=== PATIENT | female | born 1990 | race Caucasian/White ===

== ENCOUNTER → 2017-08-22 | Outpatient (CLI) | payer SELFPAY ==
--- NOTE | 2017-08-22 16:23 | RADIOLOGY REPORT (SQ) ---
EXAM DESCRIPTION: U/S [id number] TRNABD 1GES W/ODOP COMPLETED DATE/TIME: 08/22/2017 3:49 pm REASON FOR STUDY: ENCOUNTER FOR SUPERVISIONOF OTHER NORMAL Z34.82 ENCOUNTER FOR SUPRVSN O F NORMAL , SECOND TRI COMPARISON: No previous this TECHNIQUE: Transabdominal static and realtime grayscale images acquired of the pelvis. Additional se lected spectral and color Doppler images recorded. All images stored on PACs. bHCG: None available LIMITATIONS: None. FINDINGS: An intrauterine gestational sac is present, containing an embryo, by crown-rump length est imated age is 9 weeks 0 days. No cardiac activity is seen at real-time scanning, color, or M-mode Do ppler. This report was called to Jenifer at the [facility] Department, 1530 hours 08/22/2017. Embryo demise wa s also discussed with the patient and her by me, immediately after the exam. No subchorionic hemorrhage. Cervix closed. UTERUS: No masses. No anomalies. Uterus is 9 x 8 x 7 cm in size CERVICAL LENGTH: 2 cm Closed. RIGHT ADNEXA: Normal ovary with normal vascular flow. Right ovary is 3.3 x 2.2 x 2.1 cm in size. No adnexal free fluid. No adnexal masses. LEFT ADNEXA: Normal ovary with normal vascular flow. Left ovary is 2.9 x 2.3 x 2 cm in size No adnexal free fluid. No adnexal masses. FREE FLUID: None. OTHER: No other significant finding. IMPRESSION: Embryo demise, no cardiac activity. Estimated age by crown-rump length 9 weeks 0 days. Trimester of : First - 0 to 13 weeks. COMMENT: Pertinent findings on the imaging study reported as a CRITICAL RESULT to Jenifer at the [facility] Department [id number] hours on 08/22/2017. Category of Critical Result: Embryo demise TECHNICAL DOCUMENTATION: JOB ID: [id number] [employer]- All Rights Reserved
== END ==
LOC: RAD 14:42
PROVIDERS: ATTEND Nurse Practitioner Women's Health
DX: Z34.82 Encounter for supervision of other normal pregnancy, second trimester (principal)
CPT/HCPCS: 76801

== ENCOUNTER 2017-09-06 21:19 | Emergency (ER) | payer MEDICAID ==
[2017-09-06] MEDS ORDERED: DOXYCYCLINE HYCLATE INJ 100 MG VIAL IV ONE (21:43)
[2017-09-06] MEDS ORDERED: ONDANSETRON HCL INJ/PF 4 MG/2 ML SDV IV ONE (21:48)
[2017-09-06] MEDS ORDERED: KETOROLAC TROMETHAMINE INJ/PF 30 MG/1 ML SDV IV ONE (21:48)
[2017-09-06] MEDS ORDERED: OXYCODONE-ACETAMINOPHEN 5-325 MG TABLET PO ONE (21:48)
--- NOTE | 2017-09-06 21:50 | ER Document Report ---
ED GI/ - General Chief Complaint: Abdominal Pain Stated Complaint: ABDOMINAL PAIN Time Seen by Provider: 09/06/17 21:30 Mode of Arrival: Ambulatory Information source: Patient Notes: Patient states that she was recently treated for demise with Cytotec on and then had a second dose yesterday. Patient states that she was measuring about 9 weeks gestation based on her ultrasound. Patient states that after the initial dose of Cytotec she only bled for 3 hours and then the bleeding stopped. Patient states she has not had any vaginal bleeding or discharge after the second dose. Patient does report a fever of 100.9 yesterday but has not measured temperature today. Patient does complain of some nausea but denies any vomiting or diarrhea. Patient has a follow-up appointment in 5 days. TRAVEL OUTSIDE OF THE [place] IN LAST 30 DAYS: No - HPI Patient complains to provider of: Pelvic pain, - demise. No: Flank pain, Vomiting Onset: Last week Timing/Duration: Worse Quality of pain: Cramping Pain Level: 4 Location: Pelvis Vaginal bleeding (Compared to normal period): None Associated symptoms: Fever - Yesterday, none since, Nausea. denies: Diarrhea, Dysuria, Urinary hesitancy, Urinary frequency, Urinary retention, Urinary urgency, Vaginal discharge, Vomiting Exacerbated by: Denies Relieved by: Denies Similar symptoms previously: No Recently seen / treated by doctor: Yes - Related Data Allergies/Adverse Reactions: Penicillins Allergy (Verified 09/06/17 21:20) Sulfa (Sulfonamide Antibiotics) Allergy (Verified 09/06/17 21:20) Home Medications: Current Home Medications Bupropion HCl [Wellbutrin Xl 150 mg 24hr Tablet] 1 tab PO DAILY 09/06/17 [ History] Misoprostol [Cytotec 0.2 mg Tablet] 1 dose ASDIR PRN 09/06/17 [History] Past Medical History - General Information source: Patient Last Menstrual Period: with demise - Social History Smoking Status: Never Smoker Frequency of alcohol use: None Drug Abuse: None 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 Denies: Hx Peritoneal Dialysis Psychiatric Medical History: Reports: Hx Depression Traumatic Medical History: Reports: Hx Fractures Surgical Hx: Negative - Immunizations Immunizations up to date: Yes Hx Diphtheria, Pertussis, Tetanus Vaccination: Yes - 2010 Review of Systems - Review of Systems Constitutional: Fever - Yesterday EENT: No symptoms reported Cardiovascular: No symptoms reported. denies: Chest pain, Dizziness, Lightheaded Respiratory: No symptoms reported. denies: Cough, Hurts to breathe, Short of breath Gastrointestinal: Abdominal pain, Nausea. denies: Vomiting Genitourinary: No symptoms reported. denies: Dysuria, Flank pain Female Genitourinary: . denies: Vaginal discharge, Vaginal bleeding Musculoskeletal: No symptoms reported. denies: Back pain Skin: No symptoms reported Hematologic/Lymphatic: No symptoms reported Neurological/Psychological: No symptoms reported Physical Exam - Vital signs Vitals: Temp Pulse BP Pulse Ox 98.1 F 90 130/82 H 97 09/06/17 21:23 09/06/17 21:23 09/06/17 21:23 09/06/17 21:23 - General General appearance: Appears well, Alert In distress: None - HEENT Head: Normocephalic, Atraumatic Eyes: Normal Nasal: Normal Mouth/Lips: Normal Mucous membranes: Normal Neck: Normal, Supple. No: Lymphadenopathy - Respiratory Respiratory status: No respiratory distress Chest status: Nontender Breath sounds: Normal. No: Rales, Rhonchi, Stridor, Wheezing Chest palpation: Normal - Cardiovascular Rhythm: Regular Heart sounds: S1 appreciated, S2 appreciated Murmur: No - Abdominal Inspection: Normal Distension: No distension Bowel sounds: Normal Tenderness: Tender - Left lower pelvic tenderness. No: McBurney's point, Guarding, Rebound Organomegaly: No organomegaly - Back Back: Normal, Nontender. No: CVA tenderness - Extremities General upper extremity: Normal inspection, Normal ROM General lower extremity: Normal inspection, Normal ROM - Neurological Neuro grossly intact: Yes Cognition: Normal Wilman Coma Scale Eye Opening: Spontaneous Wilman Coma Scale Verbal: Oriented Wimlan Coma Scale Motor: Obeys Commands Wilman Coma Scale Total: 15 - Psychological Associated symptoms: Normal affect, Normal mood - Skin Skin Temperature: Warm Skin Moisture: Dry Skin Color: Normal Course - Re-evaluation Re-evalutation: 09/06/17 21:[address] Barbour who recommends consultation with [facility]. Consulted with Dr. Rodriguez who recommends giving patient dose of IV doxycycline and having her follow-up in the office tomorrow morning for further examination. Recommends giving her prescription pain medication to go home with. Suspects that patient's fever yesterday was related to increased dose of Cytotec as patient is currently afebrile. 09/06/17 22:39 Patient states that pain is improved after pain medication. Discussed plan of care with patient, patient verbalized understanding and is agreeable with plan. Patient nontoxic in appearance. - Vital Signs Vital signs: Temp Pulse Resp BP Pulse Ox 98.1 F 78 18 121/75 98 09/06/17 21:23 09/06/17 22:52 09/06/17 22:52 09/06/17 22:52 09/06/17 22:52 - Laboratory Result Diagrams: 09/06/17 21:55 09/06/17 21:55 Laboratory results interpreted by me: 09/06/17 21:55 WBC 12.5 H Absolute Neutrophils 8.4 H Labs- Entire Visit 09/06/17 09/06/17 21:55 21:55 WBC 12.5 H RBC 4.00 Hgb 12.7 Hct 36.1 MCV 90 MCH 31.7 MCHC 35.1 RDW 12.7 Plt Count 325 Seg Neutrophils % 66.8 Lymphocytes % 25.8 Monocytes % 5.4 Eosinophils % 1.4 Basophils % 0.6 Absolute Neutrophils 8.4 H Absolute Lymphocytes 3.2 Absolute Monocytes 0.7 Absolute Eosinophils 0.2 Absolute Basophils 0.1 Sodium 142.0 Potassium 4.1 Chloride 105 Carbon Dioxide 26 Anion Gap 11 BUN 7 Creatinine 0.72 Est GFR ( Amer) > 60 Est GFR (Non-Af Amer) > 60 Glucose 95 Calcium 9.9 Total Bilirubin 0.4 Direct Bilirubin 0.4 Neonat Total Bilirubin Not Reportable Neonat Direct Bilirubin Not Reportable Neonat Indirect Bili Not Reportable AST 16 ALT 25 Alkaline Phosphatase 63 Total Protein 6.9 Albumin 4.1 09/06/17 22:39 Labs- Entire Visit 09/06/17 09/06/17 21:55 21:55 WBC 12.5 H RBC 4.00 Hgb 12.7 Hct 36.1 MCV 90 MCH 31.7 MCHC 35.1 RDW 12.7 Plt Count 325 Seg Neutrophils % 66.8 Lymphocytes % 25.8 Monocytes % 5.4 Eosinophils % 1.4 Basophils % 0.6 Absolute Neutrophils 8.4 H Absolute Lymphocytes 3.2 Absolute Monocytes 0.7 Absolute Eosinophils 0.2 Absolute Basophils 0.1 Sodium 142.0 Potassium 4.1 Chloride 105 Carbon Dioxide 26 Anion Gap 11 BUN 7 Creatinine 0.72 Est GFR ( Amer) > 60 Est GFR (Non-Af Amer) > 60 Glucose 95 Calcium 9.9 Total Bilirubin 0.4 Direct Bilirubin 0.4 Neonat Total Bilirubin Not Reportable Neonat Direct Bilirubin Not Reportable Neonat Indirect Bili Not Reportable AST 16 ALT 25 Alkaline Phosphatase 63 Total Protein 6.9 Albumin 4.1 - Diagnostic Test Radiology reviewed: Reports reviewed - Reviewed patient's outpatient ultrasound Discharge - Discharge Clinical Impression: demise, Pelvic pain, impending a Condition: Stable Disposition: HOME, SELF-CARE Instructions: IV Antibiotics ([facility]), Miscarriage Impending ([facility]), Oral Narcotic Medication ([facility]) Additional Instructions: Return immediately for any new or worsening symptoms Followup with your [facility] provider tomorrow in the office. Let the office staff know that we spoke with Dr. Jennifer mohr and she advised that you be seen tomorrow morning for a recheck. Referrals: AB MCNALLY MD [Primary Care Provider] - Follow up as needed [facility] [Provider Group] - Follow up tomorrow
[2017-09-06 22:06] LABS: ABSOLUTE BASOPHILS # (AUTO) 0.1 10^3/uL (0.0-0.2); ABSOLUTE EOSINOPHILS # (AUTO) 0.2 10^3/uL (0.0-0.6); ABSOLUTE LYMPHOCYTES (AUTO) 3.2 10^3/uL (0.5-4.7); ABSOLUTE MONOCYTES (AUTO) 0.7 10^3/uL (0.1-1.4); ABSOLUTE NEUT (AUTO) 8.4 10^3/uL (1.7-8.2); BASOPHILS % (AUTO) 0.6 % (0-2); EOSINOPHILS % (AUTO) 1.4 % (0-6); HEMATOCRIT 36.1 % (36.0-47.0); HEMOGLOBIN 12.7 g/dL (12.0-15.5); LYMPHOCYTES % (AUTO) 25.8 % (13-45); MEAN CORPUSCULAR HEMOGLOBIN 31.7 pg (27.0-33.4); MEAN CORPUSCULAR HGB CONC 35.1 g/dL (32.0-36.0); MEAN CORPUSCULAR VOLUME 90 fl (80-97); MONOCYTES % (AUTO) 5.4 % (3-13); RED CELL DISTRIBUTION WIDTH 12.7 % (11.5-14.0); SEGMENTED NEUTROPHILS % (AUTO) 66.8 % (42-78); WHITE BLOOD COUNT 12.5 10^3/uL (4.0-10.5)
[2017-09-06 22:27] LABS: ALANINE AMINOTRANSFERASE 25 U/L (9-52); ALBUMIN 4.1 g/dL (3.5-5.0); ALKALINE PHOSPHATASE 63 U/L (38-126); ANION GAP 11 (5-19); ASPARTATE AMINO TRANSFERASE 16 U/L (14-36); BILIRUBIN,DIRECT 0.4 mg/dL (0.0-0.4); BILIRUBIN,TOTAL 0.4 mg/dL (0.2-1.3); BLOOD UREA NITROGEN 7 mg/dL (7-20); CALCIUM 9.9 mg/dL (8.4-10.2); CARBON DIOXIDE 26 mmol/L (22-30); CHLORIDE 105 mmol/L (98-107); CREATININE RESULT 0.72 mg/dL (0.52-1.25); GLUCOSE 95 mg/dL (75-110); POTASSIUM 4.1 mmol/L (3.6-5.0); TOTAL PROTEIN 6.9 g/dL (6.3-8.2)
[2017-09-06] MEDS ORDERED: HYDROCODONE/ACETAMINOPHEN 5-325 MG 6 TAB/DSPK PO PRN (22:40)
[2017-09-06 22:53] VITALS: BP 121/75
== END 2017-09-06 22:52 | disposition home or self-care (01) ==
LOC: ER 21:19
DX: O36.4XX0 Maternal care for intrauterine death, not applicable or unspecified (principal); Z3A.00 Weeks of gestation of pregnancy not specified; Z88.0 Allergy status to penicillin; Z88.2 Allergy status to sulfonamides
CPT/HCPCS: 99284; 96375; 96365; 36415; 85025; 80053; J3490; J1885; J2405

== ENCOUNTER 2017-09-11 17:45 | Observation (INO) | payer MEDICAID ==
[~2017-09-11 17:45] MED LIST: DEXAMETHASONE SOD PHOSPHATE INJ 4 MG/1 ML VIAL ONE; LIDOCAINE 2% INJ-PF (20 MG/ML) 2 ML AMPUL ONE; ONDANSETRON HCL INJ/PF 4 MG/2 ML SDV ONE; SUCCINYLCHOLINE CHLORIDE INJ 200 MG/10 ML VIAL ONE
[2017-09-11] MEDS ORDERED: KETOROLAC TROMETHAMINE INJ/PF 30 MG/1 ML SDV IV ONE (18:21)
--- NOTE | 2017-09-11 18:26 | ER Document Report ---
ED GI/ - General Chief Complaint: Vag Bleeding, +preg <12wks Stated Complaint: POSSIBLE MISCARRIAGE Time Seen by Provider: 09/11/17 18:03 Mode of Arrival: Ambulatory Information source: Patient, [facility] Records Notes: 27-year-old female patient who had an intrauterine demise, received Cytotec on 08/29/2017 again on 09/05/2017. He was seen in the office today where an attempt was made to extract the tissue unsuccessfully. Ultrasound confirmed that. She was scheduled for a D&C tomorrow morning. About 5:15 PM today she began having heavy bleeding, clots, and severe cramping. At this time she also complains of her feet feeling numb. TRAVEL OUTSIDE OF THE [place] IN LAST 30 DAYS: No - Related Data Allergies/Adverse Reactions: Penicillins Allergy (Verified 09/11/17 17:47) Sulfa (Sulfonamide Antibiotics) Allergy (Verified 09/11/17 17:47) Past Medical History - General Information source: Patient, [facility] Records Last Menstrual Period: February 03, 2017 - Social History Smoking Status: Never Smoker Cigarette use (# per day): No Chew tobacco use (# tins/day): No Smoking Education Provided: No Frequency of alcohol use: None Drug Abuse: None Occupation: [email or web address] Lives with: Family Family History: Reviewed & Not Pertinent Patient has suicidal ideation: No Patient has homicidal ideation: No - Past Medical History Cardiac Medical History: Reports: None Pulmonary Medical History: Reports: None EENT Medical History: Reports: None Neurological Medical History: Reports: None Endocrine Medical History: Reports: None Renal/ Medical History: Reports: Hx Ovarian Cysts GI Medical History: Reports: None Musculoskeltal Medical History: Reports None Psychiatric Medical History: Reports: Hx Depression Traumatic Medical History: Reports: Hx Fractures Surgical Hx: Negative - Immunizations Immunizations up to date: Yes Hx Diphtheria, Pertussis, Tetanus Vaccination: Yes - 2010 Review of Systems - Review of Systems Constitutional: No symptoms reported EENT: No symptoms reported Cardiovascular: No symptoms reported Respiratory: No symptoms reported Gastrointestinal: No symptoms reported Genitourinary: See HPI Female Genitourinary: See HPI Musculoskeletal: No symptoms reported Skin: No symptoms reported Hematologic/Lymphatic: No symptoms reported Neurological/Psychological: See HPI Physical Exam - Vital signs Vitals: Temp Pulse Resp BP Pulse Ox 98.7 F 97 16 123/75 100 09/11/17 17:50 09/11/17 17:50 09/11/17 17:50 09/11/17 17:50 09/11/17 17:50 Interpretation: Normal - General General appearance: Appears well, Alert, Anxious In distress: Mild - HEENT Head: Normocephalic, Atraumatic Eyes: Normal Pupils: PERRL Neck: Normal - Respiratory Respiratory status: No respiratory distress - Cardiovascular Rhythm: Regular - Abdominal Tenderness: Tender - Some suprapubic tenderness - Back Back: Normal - Extremities General upper extremity: Normal inspection General lower extremity: Normal inspection - Neurological Neuro grossly intact: Yes - Psychological Associated symptoms: Normal affect, Anxious Course - Vital Signs Vital signs: Temp Pulse Resp BP Pulse Ox 98.7 F 97 16 123/75 100 09/11/17 17:50 09/11/17 17:50 09/11/17 17:50 09/11/17 17:50 09/11/17 17:50 - Consults Dr. Bloom Time consulted: 18:25 Consulted provider: will see as inpatient - Admit to second floor for D&C this evening Discharge - Discharge Clinical Impression: Incomplete miscarriage Condition: Stable Disposition: ADMITTED INPATIENT Admitting Provider: [facility] Admitted: Labor and Delivery
[2017-09-11 18:53] LABS: ABSOLUTE LYMPHOCYTES (AUTO) 2.3 10^3/uL (0.5-4.7); ABSOLUTE MONOCYTES (AUTO) 0.9 10^3/uL (0.1-1.4); ABSOLUTE NEUT (AUTO) 12.9 10^3/uL (1.7-8.2); BASOPHILS % (AUTO) 0.3 % (0-2); EOSINOPHILS % (AUTO) 0.3 % (0-6); LYMPHOCYTES % (AUTO) 14.4 % (13-45); MEAN CORPUSCULAR HEMOGLOBIN 31.8 pg (27.0-33.4); MEAN CORPUSCULAR HGB CONC 35.2 g/dL (32.0-36.0); MEAN CORPUSCULAR VOLUME 90 fl (80-97); MONOCYTES % (AUTO) 5.5 % (3-13); RED CELL DISTRIBUTION WIDTH 12.9 % (11.5-14.0); SEGMENTED NEUTROPHILS % (AUTO) 79.5 % (42-78); WHITE BLOOD COUNT 16.2 10^3/uL (4.0-10.5)
[2017-09-11 19:09] LABS: ALANINE AMINOTRANSFERASE 21 U/L (9-52); ALBUMIN 4.1 g/dL (3.5-5.0); ALKALINE PHOSPHATASE 73 U/L (38-126); ANION GAP 15 (5-19); ASPARTATE AMINO TRANSFERASE 18 U/L (14-36); BILIRUBIN,DIRECT 0.2 mg/dL (0.0-0.4); BILIRUBIN,TOTAL 0.6 mg/dL (0.2-1.3); BLOOD UREA NITROGEN 6 mg/dL (7-20); CALCIUM 9.4 mg/dL (8.4-10.2); CARBON DIOXIDE 21 mmol/L (22-30); CHLORIDE 105 mmol/L (98-107); GLUCOSE 77 mg/dL (75-110); POTASSIUM 3.6 mmol/L (3.6-5.0); SODIUM 141.1 mmol/L (137-145); TOTAL PROTEIN 6.8 g/dL (6.3-8.2)
[2017-09-11] MEDS ORDERED: DEXTROSE 50%-WATER 25 GM/50 ML DISP.SYRIN IV PRN ×2 (19:47)
[2017-09-11] MEDS ORDERED: DEXTROSE 40% GEL 15 GM TUBE PO PRN ×2 (19:47)
[2017-09-11] MEDS ORDERED: GLUCAGON,HUMAN RECOMB 1 MG INJ SUBCUT PRN (19:47)
[2017-09-11] MEDS ORDERED: OXYCODONE-ACETAMINOPHEN 5-325 MG TABLET PO PRN (19:50)
[2017-09-11] MEDS ORDERED: FENTANYL CITRATE INJ/PF 100 MCG/2 ML AMPUL ONE (20:02)
[2017-09-11] MEDS ORDERED: MIDAZOLAM 2 MG/2 ML INJ ONE (20:02)
[2017-09-11] MEDS ORDERED: PROPOFOL INJ 200 MG/20 ML VIAL IV ONE (20:03)
[2017-09-11] MEDS ORDERED: OXYTOCIN 10 UNIT/ML VIAL ONE (20:03)
[2017-09-11] MEDS ORDERED: FENTANYL CITRATE INJ/PF 100 MCG/2 ML AMPUL IV PRN ×3 (21:07)
[2017-09-11] MEDS ORDERED: MEPERIDINE HCL/PF INJ 25 MG/1 ML DISP.SYRIN IV PRN (21:07)
[2017-09-11] MEDS ORDERED: DIPHENHYDRAMINE HCL 50 MG/ML VIAL IV PRN (21:07)
[2017-09-11] MEDS ORDERED: PROMETHAZINE HCL INJ 25 MG/1 ML VIAL IV PRN (21:07)
--- NOTE | 2017-09-11 21:16 | Operative Report ---
Operative Report DATE OF SURGERY: 09/11/17 PREOPERATIVE DIAGNOSIS: Incomplete ab POSTOPERATIVE DIAGNOSIS: same OPERATION: Suction d and c SURGEON: AARON BOWER ANESTHESIA: GA TISSUE REMOVED OR ALTERED: Uterine contents COMPLICATIONS: none ESTIMATED BLOOD LOSS: 50 cc INTRAOPERATIVE FINDINGS: Sound to 8 cm PROCEDURE: The patient was taken to the Or and placed in supine position. Anesthesia was induced. She was placed in the Sandoval stirrups and her vagina and perineum was prepared and draped in a sterile fashion. A weighted speculum was placed in the vagina and the anterior lip of the cervix was grasped with a ring forceps. A size 10 suction curette was used to evacuate the uterus. A gentle sharp curette was then used to explore the uterus. No retained products were found. All instruments were removed. She was placed back in supine position and brought out of anesthesia.
[2017-09-11] MEDS ORDERED: ACETAMINOPHEN 325 MG TABLET ONE (21:30)
[2017-09-11 23:35] VITALS: BP 134/87
== END 2017-09-11 23:55 | disposition home or self-care (01) ==
LOC: ER 17:45 → INTOOBSV 18:57 → EH 18:57 → 2N 19:33
PROVIDERS: ADMIT Obstetrics & Gynecology; ATTEND Obstetrics & Gynecology
PROC: 10D17ZZ Extraction of Products of Conception, Retained, Via Natural or Artificial Opening (ICD-10-PCS; principal; 2017-09-11 20:55)
DX: O03.4 Incomplete spontaneous abortion without complication (principal)
CPT/HCPCS: 99285; 96374; 86900; 86901; 36415; 86850; 85025; 80053; 88305 ×2; 59812; J3490 ×2; J2250; J1100; J3010; J1885; J0330; J2405; J2704; 1965; J2590